=== PATIENT | female | born 1945 | race African-American/Black ===

== ENCOUNTER → 2016-10-31 | Outpatient (CLI) | payer OTHER, MEDICARE ==
[~2016-10-31] MED LIST: ASMANEX0.135 GM IH; BONIVA2.5 MG PO; CALCIUM 500 +1 EAC5 PO; CLONIDINE PO; COZAAR 50 MG TA50 M1 PO; HYDROCODON-ACE1 EAC7 PO; LEVALBUTER1.25 MG/0. IH; NASONEX17 GM NS; NASONEX17 GM SPRAY; NORVASC10 MG PO; PREDNISONE 5 MG5 M1 PO; PREVACID15 MG PO; PROAIR HFA8.5 GM IH; TOPROL XL50 MG PO; TRAMADOL 50 MG50 MG PO; VICODIN; XOPENEX0.31 MG/3 IH; ZYRTEC 10 MG TA10 MG PO; [UNRECOGNIZED DRUG - OTHER] TOP
== END ==
LOC: RAD 12:14
DX: R91.1 Solitary pulmonary nodule (principal)

== ENCOUNTER → 2017-05-06 | Outpatient (CLI) | payer OTHER, MEDICARE | LOC: RAD 10:17 | DX: R06.02 Shortness of breath (principal) ==

== ENCOUNTER → 2020-02-01 | Outpatient (CLI) | payer OTHER, MEDICARE | LOC: RAD 10:34 | PROVIDERS: ATTEND Pediatrics | DX: J44.9 Chronic obstructive pulmonary disease, unspecified (principal); M47.814 Spondylosis without myelopathy or radiculopathy, thoracic region; M41.84 Other forms of scoliosis, thoracic region ==